=== PATIENT | female | born 1965 | race American Indian/Alaskan Native ===

== ENCOUNTER 2017-04-21 13:04 | Emergency (ER) | payer MEDICAID ==
[2017-04-21 13:04] VITALS: BMI 23.7
[2017-04-21 13:25] VITALS: BP 124/88; PULSE 71; RESP 20; TEMP 97.9; O2SAT 99
--- NOTE | 2017-04-21 13:42 | ED PDOC ---
HPI: Abdomen Time Seen by Provider: 04/21/17 13:27 Chief Complaint (Nursing): Abdominal Pain Chief Complaint (Provider): Lower abdominal pain History Per: Patient History/Exam Limitations: no limitations Onset/Duration Of Symptoms: Days (x5) Current Symptoms Are (Timing): Still Present Associated Symptoms: Nausea, Diarrhea, Urinary Symptoms Additional Complaint(s): Beronica is a 52 year old female who presents to the ED complaining of lower abdominal pain associated with cloudy and foul-smelling urine, onset 5 days ago. She notes having had sexual intercourse prior to onset of symptoms. Patient also complains of nausea and 1 episode of diarrhea today. Denies any dysuria, vomiting, shortness of breath, or chest pain. Patient reports having chronic low back pain, for which she is treated with epidurals, Tylenol, and Tramadol. Patient noticed similar symptoms in the past and was given Macrobid with improvement in symptoms. PMD: Dr. Marge Mackenzie MD Past Medical History Reviewed: Historical Data, Nursing Documentation, Vital Signs Vital Signs: Last Vital Signs Temp 97.9 F 04/21/17 13:21 Pulse 71 04/21/17 13:21 Resp 20 04/21/17 13:21 BP 124/88 04/21/17 13:21 Pulse Ox 99 04/21/17 13:46 - Medical History PMH: Anxiety, Arthritis, Back Problems, Bipolar Disorder, Depression Denies: Chronic Kidney Disease Other PMH: uti - Surgical History Surgical History: Tonsillectomy Other surgeries: Tubal ligation - Family History Family History: States: Diabetes, Hypertension - Social History Current smoker - smoking cessation education provided: No Alcohol: None Drugs: Denies - Immunization History Hx Tetanus Toxoid Vaccination: No Hx Influenza Vaccination: No Hx Pneumococcal Vaccination: No - Home Medications Home Medications: Ambulatory Orders Medication Instructions Recorded Acetaminophen with Codeine 1 tab PO Q8 PRN 11/05/14 [Tylenol with Codeine No. 3 300 mg-30 mg] Gabapentin [Neurontin] 600 mg PO HS 11/05/14 Tramadol Hydrochloride [Tramadol] 50 mg PO Q6 PRN 11/05/14 [place] Carbonate 600 mg PO HS 02/05/15 Meloxicam [Mobic] 7.5 mg PO DAILY 03/14/16 clonazePAM [clonAZEPAM] 0.25 mg PO DAILY 03/14/16 Naproxen [Naprosyn] 1 tab PO BID PRN #12 tab 02/15/17 Ibuprofen [Motrin] 600 mg PO TID 7 Days tab 04/21/17 Nitrofurantoin Macrocrystals 100 mg PO BID #10 cap 04/21/17 [Macrobid] - Allergies Allergies/Adverse Reactions: Allergies Allergy/AdvReac Type Severity Reaction Status Date / Time No Known Allergies Allergy Verified 02/15/17 06:47 Review of Systems Constitutional: Negative for: Fever Cardiovascular: Negative for: Chest Pain Respiratory: Negative for: Shortness of Breath Gastrointestinal: Positive for: Nausea, Abdominal Pain, Diarrhea. Negative for : Vomiting Genitourinary Female: Positive for: Other (Cloudy urine, foul smelling). Negative for: Dysuria, Frequency, Hematuria Musculoskeletal: Positive for: Back Pain (chronic per patient) Neurological: Negative for: Weakness, Numbness, Headache, Dizziness Physical Exam - Reviewed Nursing Documentation Reviewed: Yes Vital Signs Reviewed: Yes - Physical Exam Appears: Positive for: Non-toxic, No Acute Distress Head Exam: Positive for: ATRAUMATIC, NORMAL INSPECTION, NORMOCEPHALIC Skin: Positive for: Normal Color, Warm, Dry Eye Exam: Positive for: EOMI, Normal appearance, PERRL ENT: Positive for: Normal ENT Inspection Neck: Positive for: Normal, Painless ROM, Supple Cardiovascular/Chest: Positive for: Regular Rate, Rhythm. Negative for: Murmur Respiratory: Positive for: Normal Breath Sounds. Negative for: Accessory Muscle Use, Respiratory Distress Gastrointestinal/Abdominal: Positive for: Soft, Tenderness (suprapubic tenderness; no lower left or lower right tenderness; no periumbilical tenderness ) Back: Positive for: Normal Inspection. Negative for: L CVA Tenderness, R CVA Tenderness, Vertebral Tenderness Extremity: Positive for: Normal ROM, Capillary Refill (< 2 sec). Negative for: Pedal Edema, Deformity Neurologic/Psych: Positive for: Alert, Oriented (x3). Negative for: Motor/ Sensory Deficits - Laboratory Results Urine dip results: Positive for: Leukocyte Esterase - ECG O2 Sat by Pulse Oximetry: 99 (RA) Pulse Ox Interpretation: Normal - Progress ED Course And Treament: 1425: Stable. AAOx3. Pain free. Tolerated PO. Fu with pcp. Medical Decision Making Medical Decision Making: Initial Impression: Rule out UTI Time: 13:37 Initial Plan: --Urine dip --Urine --Motrin 600 mg PO --Pending reevaluation Scribe Attestation: Documented by Ana Guadalupe, acting as a scribe for Christopher Lu MD Provider Scribe Attestation: All medical record entries made by the Scribe were at my direction and personally dictated by me. I have reviewed the chart and agree that the record accurately reflects my personal performance of the history, physical exam, medical decision making, and the department course for this patient. I have also personally directed, reviewed, and agree with the discharge instructions and disposition. Disposition - Clinical Impression Clinical Impression: UTI (urinary tract infection) - Patient ED Disposition Is Patient to be Admitted: No Counseled Patient/Family Regarding: Studies Performed, Diagnosis, Need For Followup, Rx Given - Disposition Referrals: [facility] [Outside] - 04/24/17 Disposition: Routine/Home Disposition Time: 14:28 Condition: STABLE Additional Instructions: Return if not better in 3 days. Prescriptions: Ibuprofen [Motrin] 600 mg PO TID 7 Days tab Nitrofurantoin Macrocrystals [Macrobid] 100 mg PO BID #10 cap Instructions: Urinary Tract Infection in Women (ED)
== END 2017-04-21 14:47 | disposition home or self-care (01) ==
LOC: H.ER 13:04
DX: N39.0 Urinary tract infection, site not specified (principal); F31.9 Bipolar disorder, unspecified; F41.9 Anxiety disorder, unspecified